=== PATIENT | male | born 1950 | race Caucasian/White ===

== ENCOUNTER 2023-03-03 10:27 | Emergency (ER) | payer BC ==
[2023-03-03 10:53] VITALS: TEMP 98.2; BMI 23.3
[2023-03-03 12:16] LABS: INR 1.08 (0.83-1.09); PROTHROMBIN TIME (PATIENT) 12.5 SEC (9.7-13.0)
[2023-03-03 12:19] LABS: ACTIVATED PTT 30.3 SECONDS (25.2-36.5)
[2023-03-03 12:22] LABS: BASO % 0.6 % (0-2.0); EOS % 1.7 % (0-4.5); HEMATOCRIT 51.5 % (35.4-49); HEMOGLOBIN 17.8 GM/dL (11.7-16.9); MCH 32.4 pg (25.7-33.7); MCHC 34.6 g/dl (32.0-35.9); MEAN CELL VOLUME 93.6 fl (80-96); MEAN PLT VOLUME 8.7 fl (7.5-11.1); MONO % 8.1 % (3.8-10.2); NEUT % 72.6 % (42.8-82.8); PLATELET COUNT 191 10^3/uL (134-434); RBC 5.51 M/mm3 (4.00-5.60); RDW 15.4 % (11.9-15.9); WHITE BLOOD COUNT 8.5 K/mm3 (4.0-10.0)
[2023-03-03 12:35] LABS: CALCIUM 9.3 mg/dL (8.5-10.1)
[2023-03-03 12:37] LABS: ALBUMIN 3.4 g/dl (3.4-5.0); BLOOD UREA NITROGEN 28.5 mg/dL (7-18)
[2023-03-03 12:39] LABS: CREATININE 1.3 mg/dL (0.55-1.3)
[2023-03-03 12:41] LABS: BILIRUBIN,TOTAL 0.4 mg/dL (0.2-1); TOT PROT 7.2 g/dl (6.4-8.2)
[2023-03-03 15:13] VITALS: BP 133/78; PULSE 72; RESP 19
== END 2023-03-03 15:34 | disposition home or self-care (01) ==
LOC: JER 10:27
DX: R06.02 Shortness of breath (principal); R42 Dizziness and giddiness; R53.83 Other fatigue; R53.1 Weakness; Z20.822 Contact with and (suspected) exposure to COVID-19
CPT/HCPCS: 0241U-QW; 36415; 71275-TC; 80053; 84484; 85025; 85610; 85730; 93005; 93010; 99285-25; Q9967